=== PATIENT | male | born 1935 | race Caucasian/White ===

== ENCOUNTER → 2016-05-20 | Outpatient (CLI) | payer OTHER ==
[2016-05-13 16:29] VITALS: BP 145/80
--- NOTE | 2016-05-20 08:53 | US ---
Examination: Abdominal ultrasound. Clinical History: Abdominal pain, distention. Technique: Real-time grayscale ultrasound was used to evaluate the upper abdomen. Comparison: 02/12/2012. Findings: The gallbladder is suboptimally distended with questionable diffuse thickening of the gallbladder wa ll. No cholelithiasis or pericholecystic fluid is noted. The diffuse gallbladder wall thickening may be due to suboptimal distention of the gallbladder. Other causes, including an acute or chronic cho lecystitis, hepatitis, congestive heart failure, hypoalbuminemia and other acute inflammatory proces ses in the right upper quadrant need to be excluded. A nuclear medicine hepatobiliary scan with ejec tion fraction could be obtained to exclude the possibility of an acute or chronic cholecystitis. The common bile duct measures 4 mm in diameter and is within normal limits. No intrahepatic biliary ductal dilatation is noted. The liver is normal in echogenicity with no focal mass. The pancreas is obscured by bowel gas and could not be evaluated. The right kidney measures 8.3 cm in length and is suboptimally visualized with no focal mass, hydron ephrosis or nephrolithiasis noted. Impression: 1. The gallbladder is suboptimally distended with questionable diffuse thickening of the gallbladder wall. No cholelithiasis or pericholecystic fluid is noted. The diffuse gallbladder wall thickening may be due to suboptimal distention of the gallbladder. Other causes, including an acute or chronic cholecystitis, hepatitis, congestive heart failure, hypoalbuminemia and other acute inflammatory pro cesses in the right upper quadrant need to be excluded. A nuclear medicine hepatobiliary scan with e jection fraction could be obtained to exclude the possibility of an acute or chronic cholecystitis. Reported By:
== END ==
LOC: RAD 08:11
PROVIDERS: ATTEND Internal Medicine
DX: R14.0 Abdominal distension (gaseous) (principal); R10.13 Epigastric pain
CPT/HCPCS: 76705

== ENCOUNTER → 2016-05-26 | Outpatient (CLI) | payer OTHER ==
[2016-05-13 16:29] VITALS: BP 145/80
[~2016-05-26] MED LIST: LEXISCAN IV ONE
== END ==
LOC: RAD 09:30
PROVIDERS: ATTEND Physician Assistant
DX: I25.10 Atherosclerotic heart disease of native coronary artery without angina pectoris (principal)
CPT/HCPCS: 78452; 93017; A4222; A9502; J2785

== ENCOUNTER → 2016-06-09 | Outpatient (CLI) | payer OTHER ==
[2016-05-13 16:29] VITALS: BP 145/80
[2016-06-09 09:48] LABS: BASOPHILS % (AUTO) 0.7 % (0.2-1.0); EOSINOPHILS # (AUTO) 0.1 x10^3/uL (0.0-0.2); HEMATOCRIT 43.9 % (42.0-54.0); HEMOGLOBIN 14.4 g/dL (13.5-18.0); LYMPHOCYTES # (AUTO) 1.4 X10^3/uL (1.3-2.9); LYMPHOCYTES % (AUTO) 24.3 % (21.0-51.0); MEAN CORPUSCULAR HEMOGLOBIN 30.1 pg (27.0-34.0); MEAN CORPUSCULAR HGB CONC 32.9 g/dL (33.0-35.0); MEAN CORPUSCULAR VOLUME 91.4 fL (80.0-100.0); MEAN PLATELET VOLUME 8.8 fL (7.4-11.0); MONOCYTES # (AUTO) 0.7 x10^3/uL (0.3-0.8); MONOCYTES % (AUTO) 10.9 % (0.0-13.0); NEUTROPHILS # (AUTO) 3.8 x10^3/uL (2.2-4.8); NEUTROPHILS % (AUTO) 63.1 % (42.0-75.0); PLATELET COUNT 189 X10^3/uL (150.0-450.0)
[2016-06-09 10:32] LABS: ALANINE AMINOTRANSFERASE 29 Units/L (12-78); ALBUMIN 3.7 g/dL (3.4-5.0); ALKALINE PHOSPHATASE 83 Units/L (46-116); ASPARTATE AMINO TRANSFERASE 24 Units/L (15-37); BILIRUBIN,DIRECT 0.12 mg/dL (0-0.2); BLOOD UREA NITROGEN 22 mg/dL (7-18); CALCIUM 8.9 mg/dL (8.5-10.1); CARBON DIOXIDE 25.8 mmol/L (21-32); CHLORIDE 106 mmol/L (98-107); CHOL/HDL RATIO 2.7 (0.0-5.0); CHOLESTEROL 120 mg/dL (0-200); CREATININE 1.42 mg/dL (0.70-1.30); GLUCOSE 105 mg/dL (65-99); HDL CHOLESTEROL 45 mg/dL (40-60); SODIUM 142 mmol/L (136-145); TOTAL PROTEIN 7.4 g/dL (6.4-8.2); TRIGLYCERIDES 60 mg/dL (0-150); eGFR BLACK RACES > 60 (>60); eGFR NON BLACK RACES 51 (>60)
== END ==
LOC: LAB 09:15
PROVIDERS: ATTEND Internal Medicine Cardiovascular Disease
DX: R06.09 Other forms of dyspnea (principal); E78.4 Other hyperlipidemia
CPT/HCPCS: 36415; 80048; 80061; 80076; 85025